=== PATIENT | male | born 1960 | race Caucasian/White ===

== ENCOUNTER 2025-06-20 20:31 | Emergency (ER) | payer OTHER ==
[~2025-06-20] VITALS: Ht 182.9 cm; Wt 109.1 kg
[2025-06-20] MEDS ORDERED: ZYLOPRIM100 MG PO (20:47)
[2025-06-20] MEDS ORDERED: LIPITOR40 MG PO (20:48)
[2025-06-20] MEDS ORDERED: ASPIRIN81 MG PO (20:48)
[2025-06-20] MEDS ORDERED: CITALOPRAM HBR20 MG PO (20:48)
[2025-06-20] MEDS ORDERED: GLIPIZIDE5 MG PO (20:49)
[2025-06-20] MEDS ORDERED: FISH OIL 1,0001 EAC5 PO (20:49)
[2025-06-20] MEDS ORDERED: JARDIANCE10 MG PO (20:49)
[2025-06-20] MEDS ORDERED: COZAAR25 MG PO (20:50)
[2025-06-20] MEDS ORDERED: METFORMIN HCL1000 MG PO (20:50)
[2025-06-20] MEDS ORDERED: TOPROL XL25 MG PO (20:51)
[2025-06-20] MEDS ORDERED: XARELTO20 MG PO (20:51)
[2025-06-20] MEDS ORDERED: TORSEMIDE20 MG PO (20:52)
[2025-06-20] MEDS ORDERED: ALDACTONE25 MG PO (20:52)
[2025-06-20 21:23] LABS: BASOPHILS 0.2 % (0.2-1.2); EOSINOPHILS 0 % (0.8-7.0); LYMPHOCYTES 6.0 % (21.8-53.1); MCH 28.8 PG (25.7-32.2); MCHC 33.2 g/dL (32.3-36.5); MCV 86.8 fL (79.0-92.2); MONOCYTES 5.4 % (5.3-12.2); NEUTROPHILS 87.8 % (34.0-67.9); RBC 3.85 M/uL (4.63-6.08)
[2025-06-20 21:28] LABS: INR 2.3 (0.80-1.30); PROTIME 24.0 Sec (11.2-14.2)
[2025-06-20] MEDS ORDERED: LIDOCAINE 2% VISCOUS 6 ML SYR TOP ONE (21:30)
[2025-06-20 21:37] LABS: SMEAR REVIEW BLOOD SEE COMMENTS
[2025-06-20 21:40] LABS: ALCOHOL, MEDICAL <3 ng/dL (<3); ALT (SGPT) 23 U/L (14-59); AST (SGOT) 35 U/L (15-37); GLOMERULAR FILTRATION RATE,EST 49 mL/min (>60); PROTEIN, TOTAL 6.9 g/dL (6.4-8.2); UREA NITROGEN 43 mg/dL (7-18)
[2025-06-20 21:42] LABS: BLOOD/HGB, URINE SMALL (Negative); KETONE, URINE NEGATIVE (Negative); LEUK ESTERASE, URINE NEGATIVE (negative); NITRITE, URINE NEGATIVE (negative)
[2025-06-20 21:48] LABS: LACTIC ACID, BLOOD 1.5 mmol/L (0.4-2.0)
[2025-06-20 21:53] LABS: BACTERIA, URINE NONE SEEN /hpf (negative); CASTS, URINE NONE SEEN \\lpf; CRYSTALS, URINE NONE SEEN (0-1+); EPITHELIAL CELLS, URINE SQUAMOUS 1+ /lpf (0-1+); REFLEX CULTURE, URINE No (No)
[2025-06-20 21:56] LABS: AMPHETAMINES, URINE NEGATIVE (NEGATIVE); BARBITURATES, URINE NEGATIVE (NEGATIVE); BENZODIAZEPINE, URINE NEGATIVE (NEGATIVE); CANNABINOID, URINE NEGATIVE (NEGATIVE); COCAINE, URINE NEGATIVE (NEGATIVE); ECSTASY, URINE NEGATIVE (NEGATIVE); FENTANYL, URINE NEGATIVE (NEGATIVE); METHADONE, URINE NEGATIVE (NEGATIVE); OPIATES, URINE NEGATIVE (NEGATIVE); OXYCODONE, URINE NEGATIVE (NEGATIVE); PHENCYCLIDINE, URINE NEGATIVE (NEGATIVE)
[2025-06-20 23:35] LABS: GLUCOSE, CSF 90 mg/dL (40-70)
[2025-06-21 00:32] LABS: CLARITY, CEREBROSPINAL FLUID CLEAR; COLOR, CEREBROSPINAL FLUID COLORLESS; MONONUCLEAR CELLS, CSF 84 %; PMNS, CEREBROSPINAL FLUID 16 %; RBC, CEREBROSPINAL FLUID 0 /mm3; WBC, CEREBROSPINAL FLUID 3 /mm3
[2025-06-21] MEDS ORDERED: METOPROLOL TARTRATE 50 MG TAB PO ONE (04:15)
[2025-06-21 07:32] VITALS: BP 98/58
--- NOTE | 2025-06-22 09:54 | EKG ---
[facility] [address] [facility] [address] [place], [place] [address] Signed Atrial fibrillation with rapid ventricular response with premature ventricular or aberrantly conducted complexes Left axis deviation Left ventricular hypertrophy with QRS widening and repolarization abnormality ( R in aVL , [place] product ) Abnormal ECG No previous ECGs available Confirmed by Ki Kaur DO ([id number]) on 06/22/2025 9:54:27 AM Electronically Signed By: KI KAUR DO 06/22/25 0954 PATIENT NAME: MOISESSERENA MANJINDER Electrocardiogram DATE OF : 64 PHYSICIAN: KI KAUR DO REPORT #: [id number] REPORT IS CONFIDENTIAL AND NOT TO BE RELEASED WITHOUT AUTHORIZATION
== END 2025-06-21 08:17 | disposition short-term general hospital (02) ==
LOC: ED 20:31
PROVIDERS: Emergency Medicine
DX: R41.0 Disorientation, unspecified (principal); S80.02XA Contusion of left knee, initial encounter; R79.89 Other specified abnormal findings of blood chemistry; E87.1 Hypo-osmolality and hyponatremia; D72.829 Elevated white blood cell count, unspecified; I50.9 Heart failure, unspecified; E11.22 Type 2 diabetes mellitus with diabetic chronic kidney disease; N18.9 Chronic kidney disease, unspecified; J44.9 Chronic obstructive pulmonary disease, unspecified; W19.XXXA Unspecified fall, initial encounter; Z79.82 Long term (current) use of aspirin; Z79.84 Long term (current) use of oral hypoglycemic drugs; Z79.899 Other long term (current) drug therapy
CPT/HCPCS: 36415; 51702; 62270; 70450; 70496; 70498; 71045; 71260; 73560; 80053; 80307; 81001; 82140; 82945; 83605; 83880; 84157; 84484; 85025; 85060; 85379; 85610; 87040; 89051; 93005; 93010; 96365; 99285-25; G0480; J0696; Q9967